=== PATIENT | female | born 1965 | race African-American/Black ===

== ENCOUNTER 2021-03-24 10:41 | Emergency (ER) | payer MEDICAID, OTHER ==
[~2021-03-24] VITALS: Ht 167.6 cm; Wt 86.2 kg
[2021-03-24 10:49] VITALS: BP 119/79
[2021-03-24 11:31] LABS: Mean Corpuscular Volume 84.5 fL (80.0-100.0)
[2021-03-24 11:33] LABS: Hematocrit 48.1 % (36.0-46.0); Hemoglobin 16.1 g/dL (12.2-16.2); Mean Corpuscular Hemoglobin 28.3 pg (28.0-32.0); Mean Corpuscular Hgb Conc. 33.5 g/dL (32.0-36.0); Red Blood Cells 5.69 10^6/uL (4.0-5.20); Red Cell Distribution Width 15.5 % (11.8-14.3); White Blood Cell 10.6 10^3/uL (4.4-10.8)
[2021-03-24 11:39] LABS: Platelet Count (auto) 781 10^3/uL (140-450)
[2021-03-24 11:40] LABS: Basophils % (manual) 0 (0.0-2.0); Blast Cells 0; Metamyelocytes % 0; Myelocytes % 0; Promyelocytes % 0; Reactive Lymphocytes 0
[2021-03-24 11:52] LABS: Albumin 3.2 g/dL (3.4-5.0); Calcium 8.7 mg/dL (8.5-10.1); Potassium 4.1 mmol/L (3.5-5.1)
[2021-03-24 11:57] LABS: BUN/Creatinine Ratio 11.8; Bilirubin, Total 0.3 mg/dL (0.2-1.0)
[2021-03-24 12:43] LABS: Band Neutrophils % (manual) 1; Lymphocytes % (manual) 19 (10.0-50.0)
[2021-03-24 12:44] LABS: Eosinophils % (manual) 2 (0-7); Monocytes % (manual) 17 (0-12)
== END 2021-03-24 12:30 | disposition left against medical advice (07) ==
LOC: EDBD 10:41 → ER 10:41
DX: R10.84 Generalized abdominal pain (principal); R11.0 Nausea; K59.00 Constipation, unspecified; Z53.21 Procedure and treatment not carried out due to patient leaving prior to being seen by health care provider
CPT/HCPCS: 36415; 80053; 82150; 83690; 85007; 85027; 93005

== ENCOUNTER 2021-10-24 16:25 | Inpatient (IN) | payer MEDICAID ==
[~2021-10-24] VITALS: Ht 165.1 cm; Wt 76.0 kg
[2021-10-24] MEDS ORDERED: HYDROmorphone HCL 2 MG/ML VL IV ONE (16:45)
[2021-10-24] MEDS ORDERED: ONDANSETRON HCL 4 MG/2 ML VIAL IV ONE (16:45)
[2021-10-24] MEDS ORDERED: SODIUM CHLORIDE 0.9% 500 ML IVB ONE (16:45)
[2021-10-24 17:44] LABS: Urine Bacteria NONE SEEN /hpf (None Seen); Urine Blood Negative /uL (Negative); Urine Mucus FEW (None Seen); Urine Specific Gravity 1.021 (1.001-1.035); Urine WBC 8 /hpf (0 - 5)
[2021-10-24 18:58] LABS: Hematocrit 37.5 % (36.0-46.0); Hemoglobin 11.6 g/dL (12.2-16.2); Mean Corpuscular Hemoglobin 23.2 pg (28.0-32.0); Mean Corpuscular Hgb Conc. 30.9 g/dL (32.0-36.0); Red Cell Distribution Width 19.5 % (11.8-14.3); White Blood Cell 15.2 10^3/uL (4.4-10.8)
[2021-10-24 19:11] LABS: Calcium 8.5 mg/dL (8.5-10.1); Potassium 4.6 mmol/L (3.5-5.1)
[2021-10-24 19:19] LABS: BUN/Creatinine Ratio 18.8; Bilirubin, Total 0.8 mg/dL (0.2-1.0); Total Protein 8.2 g/dL (6.4-8.2)
[2021-10-24 19:30] LABS: Band Neutrophils % (manual) 0; Basophils % (manual) 0 (0.0-2.0); Blast Cells 0; Metamyelocytes % 0; Myelocytes % 0; Promyelocytes % 0; Reactive Lymphocytes 0
[2021-10-24 19:36] LABS: Eosinophils % (manual) 2 (0-7); Lymphocytes % (manual) 6 (10.0-50.0); Monocytes % (manual) 19 (0-12)
[2021-10-24] MEDS ORDERED: ACETAMINOPHEN 325 MG TAB PO PRN (22:00)
[2021-10-24] MEDS: CARVEDILOL 3.125 MG TAB PO SCH (22:00)
[2021-10-24] MEDS ORDERED: FLEET ENEMA(ADULT) 135 ML PR ONE (22:00)
[2021-10-24] MEDS ORDERED: ONDANSETRON HCL 4 MG/2 ML VIAL IV PRN (22:00)
[2021-10-24] MEDS ORDERED: TEMAZEPAM 15 MG CAP PO PRN (22:00)
[2021-10-24] MEDS ORDERED: cefTRIAXone 1GM/50ML D5W 50 ML IV ONE (22:00)
[2021-10-24] MEDS: ATORVASTATIN 20 MG TAB PO SCH (22:54)
[2021-10-24] MEDS: DOCUSATE SOD 100 MG CAP PO SCH (22:54)
[2021-10-25] MEDS: MORPHINE SULFATE 4 MG/ML SYR/VIAL IV PRN ×2 (01:00→04:50)
[2021-10-25 01:20] VITALS: BP 100/64
[2021-10-25 05:00] VITALS: BP 100/55
[2021-10-25 05:44] LABS: Hematocrit 36.4 % (36.0-46.0); Hemoglobin 11.3 g/dL (12.2-16.2); Mean Corpuscular Hemoglobin 22.7 pg (28.0-32.0); Mean Corpuscular Hgb Conc. 30.9 g/dL (32.0-36.0); Mean Corpuscular Volume 73.3 fL (80.0-100.0); Red Blood Cells 4.97 10^6/uL (4.0-5.20); Red Cell Distribution Width 18.8 % (11.8-14.3); White Blood Cell 15.9 10^3/uL (4.4-10.8)
[2021-10-25 06:02] LABS: Albumin 2.7 g/dL (3.4-5.0); BUN/Creatinine Ratio 14.3; Calcium 8.3 mg/dL (8.5-10.1); Potassium 4.5 mmol/L (3.5-5.1)
[2021-10-25 06:05] LABS: Bilirubin, Total 0.8 mg/dL (0.2-1.0); Total Protein 7.4 g/dL (6.4-8.2)
[2021-10-25 06:09] LABS: Basophils % (manual) 0 (0.0-2.0); Blast Cells 0; Metamyelocytes % 0; Myelocytes % 0; Promyelocytes % 0; Reactive Lymphocytes 0
[2021-10-25 08:06] LABS: Band Neutrophils % (manual) 1; Eosinophils % (manual) 3 (0-7); Lymphocytes % (manual) 9 (10.0-50.0); Monocytes % (manual) 18 (0-12)
[2021-10-25 09:00] VITALS: BP 124/65
[2021-10-25] MEDS: DOCUSATE SOD 100 MG CAP PO SCH ×2 (09:00→21:44)
[2021-10-25] MEDS: HYDROcodone-ACET 5/325MG TAB PO PRN (09:01)
[2021-10-25] MEDS: CARVEDILOL 3.125 MG TAB PO SCH ×2 (09:01→21:45)
[2021-10-25] MEDS: LISINOPRIL 5 MG TAB PO SCH (09:02)
[2021-10-25] MEDS: CLOPIDOGREL BISULFATE 75 MG TAB PO SCH (09:02)
[2021-10-25] MEDS: cefTRIAXone 1GM/50ML D5W 50 ML IV SCH (09:03)
[2021-10-25] MEDS ORDERED: PANTOPRAZOLE 40 MG TAB PO SCH (10:00)
[2021-10-25] MEDS ORDERED: GADOTERATE MEG 7.5 MMOL/15ml INJ (0.5MMOL/ml) IV ONE (11:49)
[2021-10-25 13:00] VITALS: BP 104/59
[2021-10-25] MEDS ORDERED: ATO40T PO (15:32)
[2021-10-25] MEDS ORDERED: CLOP75TA28 PO (15:36)
[2021-10-25] MEDS ORDERED: CARV3.1240 PO (15:36)
[2021-10-25] MEDS ORDERED: LISI-275 PO (15:38)
[2021-10-25 17:00] VITALS: BP 106/60
[2021-10-25] MEDS: SUCRALFATE 1 GM/10 ML ORAL SUSP PO SCH ×2 (17:00→21:44)
[2021-10-25] MEDS ORDERED: OXYC-963 PO (17:45)
[2021-10-25] MEDS ORDERED: PERCOT PO (17:47)
[2021-10-25] MEDS: PANTOPRAZOLE 40 MG TAB PO SCH (21:44)
[2021-10-25] MEDS: ATORVASTATIN 20 MG TAB PO SCH (21:44)
[2021-10-25 22:00] VITALS: BP 90/51
[2021-10-26 05:16] VITALS: BP 97/56
[2021-10-26] MEDS: HYDROcodone-ACET 5/325MG TAB PO PRN (06:07)
[2021-10-26] MEDS: SUCRALFATE 1 GM/10 ML ORAL SUSP PO SCH ×2 (06:07→11:46)
[2021-10-26 08:29] VITALS: BP 91/58
[2021-10-26] MEDS: CARVEDILOL 3.125 MG TAB PO SCH (09:43)
[2021-10-26] MEDS: LISINOPRIL 5 MG TAB PO SCH (09:43)
[2021-10-26] MEDS: cefTRIAXone 1GM/50ML D5W 50 ML IV SCH (09:44)
[2021-10-26] MEDS: CLOPIDOGREL BISULFATE 75 MG TAB PO SCH (09:44)
[2021-10-26] MEDS: DOCUSATE SOD 100 MG CAP PO SCH (09:44)
[2021-10-26] MEDS: PANTOPRAZOLE 40 MG TAB PO SCH (09:45)
[2021-10-26 12:54] VITALS: BP 100/59
== END 2021-10-26 14:33 | disposition home health service (06) | DRG 281 ==
LOC: EDBD 16:25 → ER 16:25 → OVERFLOW 21:52 → CENTRAL 22:51
PROVIDERS: ADMIT Nurse Practitioner; ATTEND Internal Medicine
DX: C22.9 Malignant neoplasm of liver, not specified as primary or secondary (principal); E78.5 Hyperlipidemia, unspecified; R10.9 Unspecified abdominal pain; F17.210 Nicotine dependence, cigarettes, uncomplicated; K59.00 Constipation, unspecified; I10 Essential (primary) hypertension; N39.0 Urinary tract infection, site not specified; G89.4 Chronic pain syndrome; Z20.822 Contact with and (suspected) exposure to COVID-19; I25.2 Old myocardial infarction; Z79.02 Long term (current) use of antithrombotics/antiplatelets; Z80.9 Family history of malignant neoplasm, unspecified; Z85.07 Personal history of malignant neoplasm of pancreas; Z92.3 Personal history of irradiation; Z98.51 Tubal ligation status
CPT/HCPCS: 36415; 74176; 74183; 80053; 81001; 82150; 83690; 85007; 85027; 87426; 93005; 96361; 96365; 96375; G0378; J0696; J2405

== ENCOUNTER 2022-02-02 12:44 | Inpatient (IN) | payer MEDICAID ==
[~2022-02-02] VITALS: Ht 165.1 cm; Wt 74.0 kg
[~2022-02-02 12:44] MED LIST: ATO40T PO; CARV3.1240 PO; CLOP75TA28 PO; LISI-275 PO; PERCOT PO
[2022-02-02 14:48] LABS: Hemoglobin 13.1 g/dL (12.2-16.2); Mean Corpuscular Hemoglobin 20.9 pg (28.0-32.0); Mean Corpuscular Hgb Conc. 31.2 g/dL (32.0-36.0); Red Blood Cells 6.26 10^6/uL (4.0-5.20); White Blood Cell 14.7 10^3/uL (4.4-10.8)
[2022-02-02 14:50] LABS: Basophils % (manual) 0 (0.0-2.0); Blast Cells 0; Metamyelocytes % 0; Promyelocytes % 0; Reactive Lymphocytes 0
[2022-02-02 14:51] LABS: Albumin 3.4 g/dL (3.4-5.0); Potassium 4.3 mmol/L (3.5-5.1)
[2022-02-02 15:02] LABS: BUN/Creatinine Ratio 21.4; Bilirubin, Total 0.7 mg/dL (0.2-1.0); Total Protein 8.8 g/dL (6.4-8.2)
[2022-02-02 15:30] LABS: Band Neutrophils % (manual) 2; Eosinophils % (manual) 2 (0-7); Lymphocytes % (manual) 7 (10.0-50.0); Monocytes % (manual) 22 (0-12); Myelocytes % 1
[2022-02-02 15:54] LABS: Urine Bacteria FEW /hpf (None Seen); Urine Blood Negative /uL (Negative); Urine Mucus FEW (None Seen); Urine Specific Gravity 1.023 (1.001-1.035); Urine WBC 13 /hpf (0 - 5)
[2022-02-02 15:58] LABS: Amphetamine Screen, Urine NEGATIVE (NEGATIVE); Cannabinoid Screen, Urine NEGATIVE (NEGATIVE)
[2022-02-02 16:08] LABS: Alcohol, Urine < 3.0 mg/dL (0-10); Barbiturate Scree,Urine NEGATIVE (NEGATIVE); Benzodiazephine Screen, Urine POSITIVE (NEGATIVE); Cocaine Screen, Urine NEGATIVE (NEGATIVE); Opiate Scree,Urine POSITIVE (NEGATIVE); Phencyclidine Screen, Urine NEGATIVE (NEGATIVE)
[2022-02-02] MEDS: LACTULOSE 20Gm/30ML SOLN PO SCH (17:24)
[2022-02-02] MEDS ORDERED: SODIUM CHLORIDE 0.9% 1,000 ML IV ONE (18:30)
[2022-02-02 22:00] VITALS: BP 110/68
[2022-02-02] MEDS ORDERED: ONDANSETRON HCL 4 MG/2 ML VIAL IV PRN (22:00)
[2022-02-02] MEDS ORDERED: hydrALAZINE HCL 10 MG TAB PO PRN (22:00)
[2022-02-02 22:55] VITALS: BP 110/68
[2022-02-02] MEDS: MORPHINE SULFATE INJECTION 2 MG/ML SYRG IV PRN (23:36)
[2022-02-03 05:00] VITALS: BP 112/56
[2022-02-03] MEDS: MORPHINE SULFATE INJECTION 2 MG/ML SYRG IV PRN ×3 (05:39→20:48)
[2022-02-03] MEDS: LACTULOSE 20Gm/30ML SOLN PO SCH ×3 (06:41→22:41)
[2022-02-03 09:00] VITALS: BP 106/63
[2022-02-03 13:00] VITALS: BP 107/64
[2022-02-03] MEDS: HYDROcodone-ACET 5/325MG TAB PO PRN (16:07)
[2022-02-03 16:46] VITALS: BP 104/69
[2022-02-03 22:00] VITALS: BP 91/52
[2022-02-03] MEDS: levoFLOXacin 500MG 100 ML IV SCH (22:41)
[2022-02-04 05:00] VITALS: BP 95/54
[2022-02-04] MEDS: LACTULOSE 20Gm/30ML SOLN PO SCH ×2 (06:30→14:00)
[2022-02-04] MEDS: HYDROcodone-ACET 5/325MG TAB PO PRN ×2 (06:31→12:39)
[2022-02-04 09:00] VITALS: BP 103/65
[2022-02-04] MEDS: levoFLOXacin 500MG 100 ML IV SCH (10:29)
[2022-02-04] MEDS: MORPHINE SULFATE INJECTION 2 MG/ML SYRG IV PRN (10:30)
[2022-02-04 12:59] VITALS: BP 101/68
[2022-02-04] MEDS ORDERED: LEVO500T31 PO (13:16)
[2022-02-04] MEDS ORDERED: LACT10SO3 PO (13:16)
== END 2022-02-04 17:05 | disposition hospice, home (50) | DRG 279 ==
LOC: ER 12:44 → EDBD 12:44 → OVERFLOW 18:29 → EDUNIT# 18:29 → WEST WING 20:52
PROVIDERS: ADMIT Internal Medicine; ATTEND Internal Medicine
DX: K72.90 Hepatic failure, unspecified without coma (principal); C22.9 Malignant neoplasm of liver, not specified as primary or secondary; C25.9 Malignant neoplasm of pancreas, unspecified; J18.9 Pneumonia, unspecified organism; I10 Essential (primary) hypertension; E78.5 Hyperlipidemia, unspecified; F17.210 Nicotine dependence, cigarettes, uncomplicated; G89.4 Chronic pain syndrome; I25.10 Atherosclerotic heart disease of native coronary artery without angina pectoris; Z20.822 Contact with and (suspected) exposure to COVID-19; Z83.3 Family history of diabetes mellitus; Z85.05 Personal history of malignant neoplasm of liver
CPT/HCPCS: 36415; 70450; 71045; 80053; 80307; 80320; 81001; 82140; 84484; 85007; 85027; 87040; 87081; 93005; 96361; 96374; 99291; G0378; J1956

== ENCOUNTER 2023-03-12 16:25 | Emergency (ER) | payer MEDICAID ==
[~2023-03-12] VITALS: Ht 167.6 cm; Wt 75.0 kg
[~2023-03-12 16:25] MED LIST changes: -ATO40T PO; -CARV3.1240 PO; -CLOP75TA28 PO; +LACT10SO3 PO; +LEVO500T31 PO; -LISI-275 PO
[2023-03-12 20:20] LABS: Mean Corpuscular Volume 72.6 fL (80.0-100.0)
[2023-03-12 20:21] LABS: Hematocrit 41.8 % (36.0-46.0); Hemoglobin 13.9 g/dL (12.2-16.2); Mean Corpuscular Hemoglobin 24.2 pg (28.0-32.0); Mean Corpuscular Hgb Conc. 33.3 g/dL (32.0-36.0); Red Blood Cells 5.76 10^6/uL (4.0-5.20); Red Cell Distribution Width 19.2 % (11.8-14.3); White Blood Cell 12.7 10^3/uL (4.4-10.8)
[2023-03-12 20:27] LABS: Basophils % (manual) 0 (0.0-2.0); Blast Cells 0; Metamyelocytes % 0; Myelocytes % 0; Promyelocytes % 0; Reactive Lymphocytes 0
[2023-03-12 20:43] LABS: Albumin 3.2 g/dL (3.4-5.0); Calcium 8.9 mg/dL (8.5-10.1); Potassium 4.7 mmol/L (3.5-5.1)
[2023-03-12 20:47] LABS: BUN/Creatinine Ratio 16.3 (10.0-20.0); Bilirubin, Total 0.8 mg/dL (0.2-1.0); Total Protein 9.2 g/dL (6.4-8.2)
[2023-03-12] MEDS ORDERED: ONDANSETRON HCL 4 MG/2 ML VIAL IV ONE (21:30)
[2023-03-12] MEDS ORDERED: HYDROmorphone HCL 2 MG/ML VL/or syr IV ONE (21:30)
[2023-03-12 22:15] LABS: Band Neutrophils % (manual) 2; Eosinophils % (manual) 1 (0-7); Lymphocytes % (manual) 13 (10.0-50.0); Monocytes % (manual) 26 (0-12)
[2023-03-12] MEDS ORDERED: IODIXANOL 320MG/ML 100ML BTL IV ONE (22:28)
[2023-03-12 23:47] LABS: Amphetamine Screen, Urine NEGATIVE (NEGATIVE); Barbiturate Scree,Urine NEGATIVE (NEGATIVE); Benzodiazephine Screen, Urine NEGATIVE (NEGATIVE); Cannabinoid Screen, Urine NEGATIVE (NEGATIVE); Cocaine Screen, Urine NEGATIVE (NEGATIVE)
[2023-03-12 23:54] LABS: Opiate Scree,Urine POSITIVE (NEGATIVE); Phencyclidine Screen, Urine NEGATIVE (NEGATIVE)
[2023-03-13 00:07] LABS: Urine Bacteria NONE SEEN /hpf (None Seen); Urine Blood Negative /uL (Negative); Urine Specific Gravity > 1.050 (1.001-1.035); Urine WBC 2 /hpf (0 - 5)
[2023-03-13] MEDS ORDERED: MORPHINE SULFATE 4 MG/ML SYR/VIAL IV ONE (01:00)
[2023-03-13] MEDS ORDERED: ONDANSETRON HCL 4 MG/2 ML VIAL IV ONE (01:00)
[2023-03-13] MEDS ORDERED: OXYCODONE W/ ACETAMINOPHEN 5/325MG TABLET PO ONE ×2 (01:00→06:45)
[2023-03-13] MEDS ORDERED: fentaNYL CITRATE 100 MCG/2 ML VL IV ONE (03:30)
[2023-03-13 06:36] VITALS: BP 142/88
[2023-03-13] MEDS ORDERED: IBUPROFEN 600 MG TAB PO ONE (06:45)
== END 2023-03-13 06:50 | disposition home or self-care (01) ==
LOC: ER 16:25 → EDBD 16:25 → ER 03-13 06:50
DX: C80.1 Malignant (primary) neoplasm, unspecified (principal); C78.7 Secondary malignant neoplasm of liver and intrahepatic bile duct; E87.1 Hypo-osmolality and hyponatremia; R74.8 Abnormal levels of other serum enzymes; Z85.9 Personal history of malignant neoplasm, unspecified; Z79.899 Other long term (current) drug therapy
CPT/HCPCS: 36415; 71045; 74177; 80053; 80307; 81001; 82140; 83690; 85007; 85027; 96374; 96375; 96376; 99285; J1170; J2270; J2405; J3010; Q9967

== ENCOUNTER 2023-07-20 18:57 | Emergency (ER) | payer MEDICAID ==
[~2023-07-20] VITALS: Ht 165.1 cm; Wt 75.0 kg
[2023-07-20 21:00] VITALS: PULSE 88; RESP 16; O2SAT 94
[2023-07-20] MEDS ORDERED: MORPHINE SULFATE 4 MG/ML SYR/VIAL IV ONE ×2 (21:30→23:45)
[2023-07-20] MEDS ORDERED: ONDANSETRON HCL 4 MG/2 ML VIAL IV ONE ×2 (21:30→23:45)
[2023-07-20 21:55] LABS: Hemoglobin 13.4 g/dL (12.2-16.2); Red Cell Distribution Width 18.7 % (11.8-14.3)
[2023-07-20 21:59] LABS: Hematocrit 42.4 % (36.0-46.0); Mean Corpuscular Hemoglobin 23.7 pg (28.0-32.0); Mean Corpuscular Hgb Conc. 31.6 g/dL (32.0-36.0); Mean Corpuscular Volume 74.8 fL (80.0-100.0); Red Blood Cells 5.66 10^6/uL (4.0-5.20); White Blood Cell 8.8 10^3/uL (4.4-10.8)
[2023-07-20 22:08] LABS: Band Neutrophils % (manual) 0; Basophils % (manual) 0 (0.0-2.0); Blast Cells 0; Metamyelocytes % 0; Myelocytes % 0; Promyelocytes % 0; Reactive Lymphocytes 0
[2023-07-20 22:10] LABS: Urine Bacteria NONE SEEN /hpf (None Seen); Urine Blood Negative /uL (Negative); Urine Clarity Clear (Clear); Urine Color Yellow (Yellow); Urine Hyaline Cast MOD /lpf (0 - 2); Urine Protein, UAD TRACE (Negative); Urine Urobilinogen Normal (Negative); Urine WBC 17 /hpf (0 - 5)
[2023-07-20 22:43] LABS: Alanine Aminotransferase 24 U/L (7-40); Albumin 4.2 g/dL (3.2-4.8); Alkaline Phosphatase 258 U/L (46-116); Anion Gap 7.5 (5-15); Aspartate Aminotransferase 26 U/L (13-40); BUN/Creatinine Ratio 18.2 (10.0-20.0); Blood Urea Nitrogen 16 mg/dL (9-23); Calcium 8.9 mg/dL (8.5-10.1); Carbon Dioxide 28.5 mmol/L (20-30); Chloride 104 mmol/L (98-107); Glucose 97 mg/dL (74-106); Lipase 35 U/L (12-53); Potassium 4.3 mmol/L (3.5-5.1); Sodium 140 mmol/L (136-145)
[2023-07-20 22:44] LABS: Bilirubin, Total 0.5 mg/dL (0.2-1.0); Total Protein 8.3 g/dL (5.7-8.2)
[2023-07-20 22:55] LABS: Eosinophils % (manual) 2 (0-7); Lymphocytes % (manual) 25 (10.0-50.0); Monocytes % (manual) 16 (0-12); Platelet Estimate Increased
[2023-07-20 22:56] LABS: Anisocytosis Slight; Hypochromia Moderate
[2023-07-20] MEDS ORDERED: HYDROcodone-ACET 10/325MG TAB PO ONE (23:45)
[2023-07-21] MEDS ORDERED: MORPHINE SULFATE 4 MG/ML SYR/VIAL IV ONE (02:15)
[2023-07-21] MEDS ORDERED: HYDROcodone-ACET 10/325MG TAB PO ONE (02:15)
[2023-07-21] MEDS ORDERED: ONDANSETRON HCL 4 MG/2 ML VIAL IV ONE (02:15)
[2023-07-21 02:25] VITALS: BP 110/78; PULSE 73; RESP 17; TEMP 98.3; O2SAT 97
== END 2023-07-21 02:55 | disposition home or self-care (01) ==
LOC: EDBD 18:57 → ER 18:57
DX: C22.8 Malignant neoplasm of liver, primary, unspecified as to type (principal); R74.8 Abnormal levels of other serum enzymes; R16.0 Hepatomegaly, not elsewhere classified; R10.9 Unspecified abdominal pain; I10 Essential (primary) hypertension; E78.5 Hyperlipidemia, unspecified; F17.210 Nicotine dependence, cigarettes, uncomplicated; I25.2 Old myocardial infarction
CPT/HCPCS: 36415; 71045; 71250; 74176; 80053; 81001; 83605; 83690; 83880; 84484; 85007; 85027; 93005; 96374; 96375; 96376; 99285; J2270; J2405

== ENCOUNTER 2023-10-09 12:52 | Inpatient (IN) | payer MEDICAID ==
[~2023-10-09] VITALS: Ht 162.6 cm; Wt 68.2 kg
[2023-10-09] MEDS ORDERED: SODIUM CHLORIDE 0.9% 500 ML IVB ONE (13:00)
[2023-10-09] MEDS ORDERED: MORPHINE SULFATE 4 MG/ML SYR/VIAL IV ONE ×2 (13:00→15:45)
[2023-10-09] MEDS ORDERED: ONDANSETRON HCL 4 MG/2 ML VIAL IV ONE (13:00)
[2023-10-09 13:20] VITALS: PULSE 103; RESP 19; O2SAT 98
[2023-10-09 13:29] LABS: Hematocrit 44.9 % (36.0-46.0); Hemoglobin 14.4 g/dL (12.2-16.2); Mean Corpuscular Hemoglobin 25.1 pg (28.0-32.0); Mean Corpuscular Hgb Conc. 32.1 g/dL (32.0-36.0); Mean Corpuscular Volume 78.2 fL (80.0-100.0); Red Blood Cells 5.75 10^6/uL (4.0-5.20); White Blood Cell 10.9 10^3/uL (4.4-10.8)
[2023-10-09 13:30] LABS: Red Cell Distribution Width 20.1 % (11.8-14.3)
[2023-10-09 13:32] LABS: Band Neutrophils % (manual) 0; Basophils % (manual) 0 (0.0-2.0); Blast Cells 0; Metamyelocytes % 0; Myelocytes % 0; Promyelocytes % 0; Reactive Lymphocytes 0
[2023-10-09 13:47] LABS: Alanine Aminotransferase 28 U/L (7-40); Alkaline Phosphatase 441 U/L (46-116); Anion Gap 9 (5-15); Aspartate Aminotransferase 44 U/L (13-40); BUN/Creatinine Ratio 22.4 (10.0-20.0); Blood Urea Nitrogen 15 mg/dL (9-23); Calcium 8.9 mg/dL (8.7-10.4); Carbon Dioxide 21 mmol/L (20-30); Chloride 107 mmol/L (98-107); Glucose 80 mg/dL (74-106); Lipase 31 U/L (12-53); Sodium 137 mmol/L (136-145)
[2023-10-09 13:48] LABS: Bilirubin, Total 0.6 mg/dL (0.2-1.0); Total Protein 8.3 g/dL (5.7-8.2)
[2023-10-09 13:56] LABS: INR 1.28 (0.9-1.15); Partial Thromboplastin Time 37.5 SEC (24.5-34.5); Prothrombin Time 13.2 sec (9.3-11.8)
[2023-10-09 14:05] LABS: Eosinophils % (manual) 1 (0-7); Lymphocytes % (manual) 12 (10.0-50.0); Monocytes % (manual) 34 (0-12); Platelet Estimate Increased
[2023-10-09 15:21] LABS: Urine Bacteria NONE SEEN /hpf (None Seen); Urine Blood Negative /uL (Negative); Urine Clarity HAZY (Clear); Urine Color Yellow (Yellow); Urine Hyaline Cast MANY /lpf (0 - 2); Urine Mucus FEW (None Seen); Urine Protein, UAD 1+ (Negative); Urine Specific Gravity 1.029 (1.001-1.035); Urine Urobilinogen Normal (Negative); Urine WBC 15 /hpf (0 - 5); Urine pH 5.5 (5.0-8.0)
[2023-10-09] MEDS ORDERED: cefTRIAXone 1GM/50ML D5W 50 ML IV ONE (15:45)
[2023-10-09] MEDS ORDERED: NITROGLYCERIN 0.4 MG SL TAB SL PRN (18:15)
[2023-10-09] MEDS ORDERED: MORPHINE SULFATE INJ 2 MG/ml SYRG IV PRN (18:15)
[2023-10-09] MEDS ORDERED: ACETAMINOPHEN 325 MG TAB PO PRN (18:15)
[2023-10-09] MEDS ORDERED: ONDANSETRON HCL 4 MG/2 ML VIAL IV PRN (18:15)
[2023-10-09] MEDS ORDERED: DOCUSATE SOD 100 MG CAP PO PRN (18:15)
[2023-10-09 19:45] VITALS: PULSE 102; RESP 14; O2SAT 93
[2023-10-09] MEDS ORDERED: hydrALAZINE HCL 20 MG/ML VL IV PRN (20:00)
[2023-10-09] MEDS: MORPHINE SULFATE INJ 2 MG/ml SYRG IV PRN (21:37)
[2023-10-10] VITALS (7 sets, daily range): BP systolic 102–123; BP diastolic 60–73; PULSE 89–96; RESP 17–20; TEMP 97.4–98.8; O2SAT 94–97
[2023-10-10] MEDS: LACTULOSE 20Gm/30ML SOLN PO SCH ×2 (00:26→09:24)
[2023-10-10] MEDS: OXYCODONE W/ ACETAMINOPHEN 5/325MG TABLET PO PRN ×2 (01:29→09:24)
[2023-10-10] MEDS: MORPHINE SULFATE INJ 2 MG/ml SYRG IV PRN ×2 (05:40→12:34)
[2023-10-10 06:38] LABS: White Blood Cell 11.7 10^3/uL (4.4-10.8)
[2023-10-10 06:40] LABS: Hematocrit 43.1 % (36.0-46.0); Hemoglobin 13.8 g/dL (12.2-16.2); Mean Corpuscular Hemoglobin 25.3 pg (28.0-32.0); Mean Corpuscular Hgb Conc. 32.1 g/dL (32.0-36.0); Mean Corpuscular Volume 78.8 fL (80.0-100.0); Red Blood Cells 5.47 10^6/uL (4.0-5.20)
[2023-10-10 06:48] LABS: Red Cell Distribution Width 20.1 % (11.8-14.3)
[2023-10-10 06:49] LABS: Band Neutrophils % (manual) 0; Basophils % (manual) 0 (0.0-2.0); Blast Cells 0; Metamyelocytes % 0; Myelocytes % 0; Promyelocytes % 0; Reactive Lymphocytes 0
[2023-10-10 07:08] LABS: Alanine Aminotransferase 25 U/L (7-40); Alkaline Phosphatase 385 U/L (46-116); Anion Gap 9 (5-15); Aspartate Aminotransferase 35 U/L (13-40); BUN/Creatinine Ratio 13.9 (10.0-20.0); Bilirubin, Total 0.5 mg/dL (0.2-1.0); Blood Urea Nitrogen 10 mg/dL (9-23); Calcium 8.7 mg/dL (8.5-10.1); Carbon Dioxide 22 mmol/L (20-30); Chloride 107 mmol/L (98-107); Glucose 83 mg/dL (74-106); Potassium 3.9 mmol/L (3.5-5.1); Sodium 138 mmol/L (136-145); Total Protein 8.2 g/dL (5.7-8.2)
[2023-10-10 08:26] LABS: Eosinophils % (manual) 5 (0-7); Lymphocytes % (manual) 12 (10.0-50.0); Monocytes % (manual) 21 (0-12)
[2023-10-10 08:27] LABS: Anisocytosis Slight; Platelet Estimate Increased
[2023-10-10] MEDS ORDERED: cefTRIAXone 1GM/50ML D5W 50 ML IV SCH (09:00)
[2023-10-10] MEDS ORDERED: FLEET ENEMA(ADULT) 135 ML PR PRN (10:00)
[2023-10-10] MEDS ORDERED: LACTULOSE 20Gm/30ML SOLN PO SCH (10:00)
== END 2023-10-10 16:24 | disposition hospice, home (50) | DRG 281 ==
LOC: EDBD 12:52 → ER 12:52 → TELE 18:09 → TELE-WESTW 23:18
PROVIDERS: ADMIT Nurse Practitioner Family; ATTEND Nurse Practitioner Acute Care
DX: C25.9 Malignant neoplasm of pancreas, unspecified (principal); D72.829 Elevated white blood cell count, unspecified; D75.839 Thrombocytosis, unspecified; E78.5 Hyperlipidemia, unspecified; F17.210 Nicotine dependence, cigarettes, uncomplicated; I10 Essential (primary) hypertension; I25.10 Atherosclerotic heart disease of native coronary artery without angina pectoris; K59.00 Constipation, unspecified; N39.0 Urinary tract infection, site not specified; Z83.3 Family history of diabetes mellitus; Z85.05 Personal history of malignant neoplasm of liver; Z85.07 Personal history of malignant neoplasm of pancreas
CPT/HCPCS: 36415; 74176; 76705; 80053; 81001; 83690; 85007; 85027; 85610; 85730; 96361; 96365; 96375; G0378; J0696; J2405

== ENCOUNTER 2023-10-20 15:55 | Inpatient (IN) | payer OTHER, MEDICAID ==
[~2023-10-20] VITALS: Ht 167.6 cm; Wt 59.0 kg
[~2023-10-20 15:55] MED LIST changes: -LEVO500T31 PO
[2023-10-20] MEDS ORDERED: KETAMINE 50mg/ML 10ml Vial (500mg/10ml) IV ONE (16:30)
[2023-10-20] MEDS ORDERED: SODIUM CHLORIDE 0.9% 1,000 ML IV ONE (16:30)
[2023-10-20 16:50] LABS: Basophils # (auto) 0.1 10 ^3/uL (0-0.2); Eosinophils # (auto) 0.2 10 ^3/uL (0-0.8); Neutrophils # (auto) 13.4 10 ^3/uL (1.6-8.6); Nucleated Red Blood Cells % 0.1 %
[2023-10-20 16:51] LABS: Basophils % (auto) 0.5 % (0.0-2.0); Hematocrit 43.5 % (36.0-46.0); Hemoglobin 14.1 g/dL (12.2-16.2); Mean Corpuscular Hemoglobin 25.3 pg (28.0-32.0); Mean Corpuscular Hgb Conc. 32.4 g/dL (32.0-36.0); Mean Corpuscular Volume 78.2 fL (80.0-100.0); Monocytes # (auto) 5.2 10 ^3/uL (0-1.3); Neutrophils % (auto) 67.4 % (37.0-80.0); Red Blood Cells 5.56 10^6/uL (4.0-5.20); Red Cell Distribution Width 19.1 % (11.8-14.3); White Blood Cell 19.9 10^3/uL (4.4-10.8)
[2023-10-20 16:53] LABS: Monocytes % (auto) 26.1 % (0.0-12.0)
[2023-10-20 17:08] LABS: Alanine Aminotransferase 13 U/L (7-40); Albumin 4.1 g/dL (3.2-4.8); Alkaline Phosphatase 274 U/L (46-116); Anion Gap 10 (5-15); Aspartate Aminotransferase 27 U/L (13-40); BUN/Creatinine Ratio 11.1 (10.0-20.0); Blood Urea Nitrogen 7 mg/dL (9-23); Carbon Dioxide 24 mmol/L (20-30); Chloride 104 mmol/L (98-107); Glucose 100 mg/dL (74-106); Lipase 22 U/L (12-53); Potassium 4.2 mmol/L (3.5-5.1); Sodium 138 mmol/L (136-145)
[2023-10-20 17:09] LABS: Bilirubin, Total 0.7 mg/dL (0.2-1.0); Total Protein 8.5 g/dL (5.7-8.2)
[2023-10-20] MEDS ORDERED: fentaNYL CITRATE 100 MCG/2 ML VL IV ONE ×2 (17:15→20:00)
[2023-10-20 17:36] VITALS: PULSE 96; RESP 20; TEMP 98.3; O2SAT 97
[2023-10-20 19:26] LABS: Platelet Estimate Increased
[2023-10-20 19:40] VITALS: PULSE 102; RESP 18; O2SAT 95
[2023-10-20] MEDS ORDERED: LACTULOSE 20Gm/30ML SOLN PO ONE (20:15)
[2023-10-20] MEDS ORDERED: LORazepam 2MG/ML-1ML VIAL IV ONE (22:00)
[2023-10-20] MEDS ORDERED: OXYCODONE W/ ACETAMINOPHEN 5/325MG TABLET PO ONE (22:00)
[2023-10-21 02:25] LABS: Urine Bacteria NONE SEEN /hpf (None Seen); Urine Blood Negative /uL (Negative); Urine Clarity HAZY (Clear); Urine Color Yellow (Yellow); Urine Mucus FEW (None Seen); Urine Protein, UAD 1+ (Negative); Urine Specific Gravity 1.036 (1.001-1.035); Urine WBC 17 /hpf (0 - 5); Urine pH 5.5 (5.0-8.0)
[2023-10-21] MEDS ORDERED: OXYCODONE W/ ACETAMINOPHEN 5/325MG TABLET PO ONE (06:15)
[2023-10-21] MEDS ORDERED: LORazepam 2MG/ML-1ML VIAL IV ONE (06:15)
[2023-10-21] MEDS ORDERED: ONDANSETRON HCL 4 MG/2 ML VIAL IV PRN (12:45)
[2023-10-21] MEDS ORDERED: DOCUSATE SOD 100 MG CAP PO PRN (12:45)
[2023-10-21] MEDS ORDERED: MORPHINE SULFATE INJ 2 MG/ml SYRG IV PRN (12:45)
[2023-10-21] MEDS ORDERED: LACTULOSE 20Gm/30ML SOLN PO SCH (14:00)
[2023-10-21] MEDS ORDERED: ONDA4INJ5 IV (19:24)
[2023-10-21] MEDS ORDERED: PERCOT PO ×2 (19:24)
[2023-10-21] MEDS ORDERED: LACT10SO3 PO (19:24)
[2023-10-21] MEDS ORDERED: HYDROmorphone HCL 2 MG/ML VL/or syr IM STA (19:35)
[2023-10-21 19:55] VITALS: PULSE 102; RESP 20; O2SAT 96
[2023-10-21 19:58] VITALS: O2SAT 96
[2023-10-21 20:12] VITALS: BP 114/63; PULSE 102; RESP 20
[2023-10-22] MEDS ORDERED: cefTRIAXone 1GM/50ML D5W 50 ML IV SCH (12:47)
== END 2023-10-21 20:31 | disposition home or self-care (01) | DRG 690 ==
LOC: ER 15:55 → EDUNIT# 15:55 → EDBD 15:55 → OVERFLOW 10-21 12:43
PROVIDERS: ADMIT Nurse Practitioner Family; ATTEND Nurse Practitioner Family
DX: N30.00 Acute cystitis without hematuria (principal); C22.9 Malignant neoplasm of liver, not specified as primary or secondary; C25.9 Malignant neoplasm of pancreas, unspecified; E78.5 Hyperlipidemia, unspecified; G89.29 Other chronic pain; I10 Essential (primary) hypertension; Z51.5 Encounter for palliative care; Z74.01 Bed confinement status; Z85.05 Personal history of malignant neoplasm of liver
CPT/HCPCS: 36415; 71045; 74176; 76705; 80053; 81001; 83690; 85025; 87086; 96361; 96374; 96375; 96376; G0378; J2405

== ENCOUNTER 2023-12-18 17:51 | Emergency (ER) | payer MEDICAID ==
[~2023-12-18] VITALS: Ht 175.3 cm; Wt 59.0 kg
[2023-12-18] MEDS ORDERED: MORPHINE SULFATE 4 MG/ML SYR/VIAL IV ONE (19:15)
[2023-12-18] MEDS ORDERED: SODIUM CHLORIDE 0.9% 1,000 ML IV ONE (19:15)
[2023-12-18 19:46] LABS: Hemoglobin 13.8 g/dL (12.2-16.2); Mean Corpuscular Hgb Conc. 32.1 g/dL (32.0-36.0); Red Blood Cells 5.31 10^6/uL (4.0-5.20); Red Cell Distribution Width 19.5 % (11.8-14.3); White Blood Cell 12.4 10^3/uL (4.4-10.8)
[2023-12-18 19:48] LABS: Basophils % (manual) 0 (0.0-2.0); Blast Cells 0; Metamyelocytes % 0; Myelocytes % 0; Promyelocytes % 0; Reactive Lymphocytes 0
[2023-12-18 20:11] LABS: Alanine Aminotransferase 16 U/L (7-40); Albumin 4.1 g/dL (3.2-4.8); Alkaline Phosphatase 331 U/L (46-116); Anion Gap 9 (5-15); Aspartate Aminotransferase 29 U/L (13-40); BUN/Creatinine Ratio 17.9 (10.0-20.0); Bilirubin, Total 1.2 mg/dL (0.2-1.0); Blood Urea Nitrogen 10 mg/dL (9-23); Calcium 8.9 mg/dL (8.7-10.4); Carbon Dioxide 21 mmol/L (20-30); Chloride 106 mmol/L (98-107); Glucose 95 mg/dL (74-106); Lipase 23 U/L (12-53); Potassium 4.1 mmol/L (3.5-5.1); Sodium 136 mmol/L (136-145); Total Protein 8.7 g/dL (5.7-8.2)
[2023-12-18 21:06] LABS: Anisocytosis Slight; Band Neutrophils % (manual) 1; Eosinophils % (manual) 1 (0-7); Lymphocytes % (manual) 6 (10.0-50.0); Monocytes % (manual) 16 (0-12); Platelet Estimate Adequate
[2023-12-18 22:52] VITALS: PULSE 116; RESP 19; O2SAT 92
[2023-12-19] MEDS ORDERED: DIPHENOXYLATE W/ATROPINE 2.5 MG TAB PO ONE (01:45)
[2023-12-19] MEDS ORDERED: MORPHINE SULFATE 4 MG/ML SYR/VIAL IV ONE ×4 (02:15→17:45)
[2023-12-19] MEDS ORDERED: ONDANSETRON HCL 4 MG/2 ML VIAL IV ONE (02:15)
[2023-12-19 19:50] VITALS: PULSE 102; RESP 19; O2SAT 95
[2023-12-20] MEDS ORDERED: MORPHINE SULFATE 4 MG/ML SYR/VIAL IV ONE ×4 (00:45→21:15)
[2023-12-20] MEDS ORDERED: ONDANSETRON HCL 4 MG/2 ML VIAL IV ONE ×3 (00:45→15:00)
[2023-12-20 07:30] VITALS: PULSE 96; RESP 16; O2SAT 96
[2023-12-20 14:00] VITALS: TEMP 97.6
[2023-12-20] MEDS ORDERED: FAMOTIDINE (10MG/ML) 2ML VL IV ONE (16:00)
[2023-12-20 19:30] VITALS: PULSE 96; RESP 18; O2SAT 94
[2023-12-20 21:21] VITALS: BP 107/65; PULSE 94; RESP 16
== END 2023-12-20 21:30 | disposition home or self-care (01) ==
LOC: ER 17:51 → EDUNIT# 17:51 → EDBD 17:51 → ER 12-20 21:30
DX: C25.9 Malignant neoplasm of pancreas, unspecified (principal); C78.7 Secondary malignant neoplasm of liver and intrahepatic bile duct; E78.5 Hyperlipidemia, unspecified; I10 Essential (primary) hypertension; I25.2 Old myocardial infarction; F17.210 Nicotine dependence, cigarettes, uncomplicated
CPT/HCPCS: 36415; 74177; 80053; 83605; 83690; 85007; 85027; 87040; 93005; 96361; 96374; 96376; 99285; J2270; J2405; J3490; J7030

== ENCOUNTER 2024-03-25 13:19 | Emergency (ER) | payer MEDICAID ==
[~2024-03-25] VITALS: Ht 167.6 cm; Wt 58.0 kg
[2024-03-25 13:29] VITALS: O2SAT 98
[2024-03-25 14:01] LABS: Mean Corpuscular Hgb Conc. 31.8 g/dL (32.0-36.0); White Blood Cell 11.5 10^3/uL (4.4-10.8)
[2024-03-25 14:03] LABS: Hematocrit 38.6 % (36.0-46.0); Hemoglobin 12.3 g/dL (12.2-16.2); Mean Corpuscular Hemoglobin 25.8 pg (28.0-32.0); Red Blood Cells 4.77 10^6/uL (4.0-5.20); Red Cell Distribution Width 17.4 % (11.8-14.3)
[2024-03-25 14:15] LABS: Band Neutrophils % (manual) 0; Basophils % (manual) 0 (0.0-2.0); Blast Cells 0; Metamyelocytes % 0; Myelocytes % 0; Promyelocytes % 0; Reactive Lymphocytes 0
[2024-03-25 14:40] LABS: Alanine Aminotransferase 16 U/L (7-40); Albumin 3.7 g/dL (3.2-4.8); Alkaline Phosphatase 422 U/L (46-116); Anion Gap 7 (5-15); Aspartate Aminotransferase 39 U/L (13-40); BUN/Creatinine Ratio 22.6 (10.0-20.0); Bilirubin, Total 0.9 mg/dL (0.2-1.0); Blood Urea Nitrogen 12 mg/dL (9-23); Calcium 8.8 mg/dL (8.5-10.1); Carbon Dioxide 23 mmol/L (20-30); Chloride 108 mmol/L (98-107); Glucose 86 mg/dL (74-106); Potassium 4.1 mmol/L (3.5-5.1); Sodium 138 mmol/L (136-145); Total Protein 8.2 g/dL (5.7-8.2)
[2024-03-25] MEDS ORDERED: ONDANSETRON ODT 4 MG TAB PO ONE (15:30)
[2024-03-25] MEDS ORDERED: HYDROmorphone HCL 2 MG/ML VL/or syr IM ONE (15:30)
[2024-03-25 17:08] LABS: Eosinophils % (manual) 3 (0-7); Large Platelets FEW; Lymphocytes % (manual) 14 (10.0-50.0); Monocytes % (manual) 17 (0-12); Platelet Estimate Increased
[2024-03-25] MEDS: ONDANSETRON HCL 4 MG/2 ML VIAL IV ONE (18:29)
[2024-03-25 18:30] VITALS: BP 128/70; PULSE 96; RESP 18
[2024-03-25] MEDS: HYDROmorphone HCL 2 MG/ML VL/or syr IV ONE (18:30)
== END 2024-03-25 18:41 | disposition left against medical advice (07) ==
LOC: EDBD 13:19 → EDUNIT# 13:19 → ER 13:19
DX: R10.9 Unspecified abdominal pain (principal); R11.2 Nausea with vomiting, unspecified; Z53.21 Procedure and treatment not carried out due to patient leaving prior to being seen by health care provider
CPT/HCPCS: 36415; 74176; 80053; 83690; 85007; 85027; 93005; 96374; 96375; 99281; J1170; J2405